=== PATIENT | male | born 1970 | race Caucasian/White ===

== ENCOUNTER 2019-04-29 04:53 | Emergency (ER) | payer SELFPAY ==
[~2019-04-29] VITALS: Ht 162.6 cm; Wt 88.9 kg
[2019-04-29 04:58] VITALS: BP 131/90
--- NOTE | 2019-04-29 04:58 | NUR ---
TO BED # 03 AMBULATORY
--- NOTE | 2019-04-29 05:00 | NUR ---
PATIENT PRESENTS TO ED WITH COMPLAINT OF EPIGASTRIC PAIN FOR 2 DAYS. DENIES N/V/D; SKIN IS PINK/WARM/DRY; AAOX4 WITH EVEN AND STEADY GAIT; LUNGS CLEAR BL; HR EVEN AND REGULAR; PT DENIES ANY FEVER, CP, SOB, OR COUGH AT THIS TIME; PATIENT STATES PAIN OF 7/10 AT THIS TIME; VSS; PATIENT POSITIONED FOR COMFORT; HOB ELEVATED; BEDRAILS UP X2; BED DOWN. ER MD MADE AWARE OF PT STATUS.
--- NOTE | 2019-04-29 05:05 | NUR ---
Dr. Matthew examining patient.
[2019-04-29] MEDS ORDERED: DICYCLOMINE HCL LIQUID 20 MG, ALUMINUM HYD/MAG/SIMETHICONE 30 ML, LIDOCAINE VISCOUS 2% ... PO ONE ×3 (05:10)
[2019-04-29] MEDS ORDERED: PANTOPRAZOLE 40 MG INJ VIAL IVP ONE (05:10)
[2019-04-29 05:43] LABS: BASOPHILS % (AUTO) 0.2 % (0.0-2.0); EOSINOPHILS # (AUTO) 0.1 K/uL (0-0.4); EOSINOPHILS % (AUTO) 0.9 % (0.0-4.0); HEMATOCRIT 46.9 % (36-52); HEMOGLOBIN 15.8 g/dL (12.0-18.0); LYMPHOCYTES % (AUTO) 27.9 % (20.5-51.1); MEAN CORPUSCULAR HEMOGLOBIN 30 pg (27-31); MEAN CORPUSCULAR HGB CONC 34 g/dL (33-37); MEAN CORPUSCULAR VOLUME 89.5 fL (80-94); NEUTROPHILS # (AUTO) 6.6 K/uL (1.8-7.7); PLATELET COUNT (AUTO) 276 K/uL (140-450); RED BLOOD CELL COUNT(AUTO) 5.24 MIL/uL (4.20-6.10); RED CELL DISTRIBUTION WIDTH 13.1 % (11.6-13.7); WHITE BLOOD COUNT (AUTO) 10.7 K/uL (4.8-10.8)
[2019-04-29 06:11] LABS: ANION GAP 11.7 (8-16); CARBON DIOXIDE 27.8 mmol/L (21-32); CREATININE 0.8 mg/dL (0.7-1.3); POTASSIUM 3.5 mmol/L (3.5-5.1)
[2019-04-29 06:15] LABS: ALBUMIN 3.5 g/dL (3.4-5.0); TOTAL BILIRUBIN 0.4 mg/dL (0.0-1.0)
[2019-04-29 06:30] VITALS: BP 131/90
--- NOTE | 2019-04-29 06:30 | NUR ---
Patient discharged with v/s stable. Written and verbal after care instructions given and explained. Patient alert, oriented and verbalized understanding of instructions. Ambulatory with steady gait. All questions addressed prior to discharge. ID band removed. Patient advised to follow up with PMD. Rx of PANTOPRAZOLE AND RANITIDINE given. Patient educated on indication of medication including possible reaction and side effects. Opportunity to ask questions provided and answered.
== END 2019-04-29 06:30 | disposition home or self-care (01) ==
LOC: MED 04:53
DX: K29.70 Gastritis, unspecified, without bleeding (principal); E11.9 Type 2 diabetes mellitus without complications; Z88.0 Allergy status to penicillin
CPT/HCPCS: 36415; 80053; 83690; 85025; 96374; 99283; C9113

== ENCOUNTER 2022-09-20 13:15 | Emergency (ER) | payer OTHER ==
[~2022-09-20] VITALS: Ht 167.6 cm; Wt 79.4 kg
[2022-09-20 13:23] VITALS: BP 149/99
--- NOTE | 2022-09-20 14:01 | NUR ---
FLU AND JUAN DANIEL SWABS COLLECTED AND WALKED TO LAB
[2022-09-20] MEDS ORDERED: ONDANSETRON 4 MG ODT PO ONE (14:50)
[2022-09-20] MEDS ORDERED: MECLIZINE 25 MG TAB PO ONE (14:50)
--- NOTE | 2022-09-20 14:57 | NUR ---
52M presents to ED with c/o dizziness and headache x4days, and N/V today. Pt reports sudden onset of symptoms while at work 4 days ago, a intermittent, throbbing like, 7/10 head pain. Pt reports dizziness worsens when turning head fast. Pt denies fevers, chills, and ABD pain. Pt reports taking tylenol today at 0400 with mild relief of JAFFE. PT changed into gown.
[2022-09-20] MEDS ORDERED: IBUP-2213 PO (15:59)
[2022-09-20] MEDS ORDERED: MECL-303 PO (15:59)
[2022-09-20] MEDS ORDERED: ONDA-188 PO (15:59)
[2022-09-20 16:16] VITALS: BP 135/84
--- NOTE | 2022-09-20 16:16 | NUR ---
Patient discharged with v/s stable. Written and verbal after care instructions given and explained. Patient alert, oriented and verbalized understanding of instructions. Ambulatory with steady gait. All questions addressed prior to discharge. ID band removed. Patient advised to follow up with PMD. Rx of IBUPROFEN, MECLIZINE given. Patient educated on indication of medication including possible reaction and side effects. Opportunity to ask questions provided and answered.
== END 2022-09-20 16:16 | disposition home or self-care (01) ==
LOC: MED 13:15
DX: R51.9 Headache, unspecified (principal); Z20.822 Contact with and (suspected) exposure to COVID-19; R42 Dizziness and giddiness; R11.2 Nausea with vomiting, unspecified; E11.9 Type 2 diabetes mellitus without complications; Z88.0 Allergy status to penicillin; Z79.899 Other long term (current) drug therapy
CPT/HCPCS: 87426; 87804; 99283; J8597; Q0162